=== PATIENT | male | born 1945 | race Caucasian/White ===

== ENCOUNTER 2019-10-15 17:44 | Inpatient (IN) | payer MEDICARE ==
[2019-10-15 17:50] VITALS: BMI 30.4
[2019-10-15] MEDS ORDERED: Acetaminophen 325 MG TAB PO PRN (19:34)
[2019-10-15] MEDS ORDERED: Benzonatate 100 MG CAP PO PRN (19:34)
[2019-10-15] MEDS: Losartan 25 MG TAB PO SCH (21:07)
[2019-10-15] MEDS: Ventolin HFA Inhaler 60 PUFF INHALER INH SCH (21:07)
[2019-10-15 21:33] LABS: #Basophils 0.1 thou/uL (0.0-0.2); #Eosinphils 0.2 thou/uL (0.0-0.7); #Lymphocytes 2.2 thou/uL (1.20-3.40); #Monocytes 0.6 thou/uL (0.11-0.59); #Neutrophils 5.7 thou/uL (1.40-6.50); %Lymphocytes 25.2 % (21.0-51.0); %Monocytes 6.8 % (0.0-10.0); %Neutrophils 65.1 % (42.0-75.0); Hemoglobin 12.9 g/dL (14.0-18.0); Mean Corpuscular HGB CONC 32.7 g/dL (32.0-36.0); Mean Corpuscular Hemoglobin 29.4 pg (27.0-31.0); Mean Corpuscular Volume 90.2 fL (78.0-98.0); Mean Platelet Volume 7.3 fL (7.4-10.4); Platelet Count 210 thou/uL (130-400); RBC Distribution Width 12.4 % (11.5-14.5); Red Blood Cell (RBC) Count 4.39 mill/uL (4.70-6.10); White Blood Cell (WBC) Count 8.7 thou/uL (4.8-10.8)
[2019-10-15 21:47] LABS: ALT (SGPT) 94 U/L (8-55); AST (SGOT) 46 U/L (5-34); Albumin 3.3 g/dL (3.4-4.8); Alkaline Phosphatase 119 U/L (40-110); Anion Gap 14 mmol/L (10-20); BUN (Urea Nitrogen) 14 mg/dL (8.4-25.7); Bilirubin, Total 0.7 mg/dL (0.2-1.2); Calc. Creatinine Clearance 56 mL/min (70-130); Calcium 8.6 mg/dL (7.8-10.44); Carbon Dioxide 23 mmol/L (23-31); Chloride 107 mmol/L (98-107); Estimated GFR-MDRD 39; Globulin 4.5 g/dL (2.4-3.5); Glucose 91 mg/dL (83-110); Potassium 3.2 mmol/L (3.5-5.1); Protein, Total 7.8 g/dL (5.8-8.1); Sodium 141 mmol/L (136-145)
--- NOTE | 2019-10-15 21:51 | RAD ---
Chest one view HISTORY: Pneumonia. FINDINGS: Cardiac silhouette is magnified and enlarged. Left hemidiaphragm is obscured by dense infil trate at the left posterior lung base. Pulmonary vasculature upper limits of normal. Patient is slightly rotated leftward. No evidence of pneumothorax. Prominent degenerative changes of the shoulders. IMPRESSION : Left lower lobe pneumonia. Cardiomegaly.
[2019-10-16] MEDS: Aspirin 81 mg Enteric Coated Tablet PO SCH (09:26)
[2019-10-16] MEDS: Amlodipine 5 MG TAB PO SCH (09:26)
[2019-10-16] MEDS: Atorvastatin Calcium 10 MG TAB PO SCH (09:27)
[2019-10-16] MEDS: Ventolin HFA Inhaler 60 PUFF INHALER INH SCH ×3 (09:27→19:54)
[2019-10-16] MEDS: Polyethylene Glycol 3350 17 GM Packet PO SCH (09:27)
--- NOTE | 2019-10-16 11:45 | HP ---
HISTORY OF PRESENT ILLNESS: The patient is an unfortunate 74-year-old white male living at the [facility] for several years because of gradually progressing dementia, but who had been maintaining ADLs when he developed acute respiratory distress and was found to have a left lower lobe pneumonia. He was evaluated for COVID-19 as this group home did have a significant outbreak, but he was negative x2. He was treated with broad-spectrum antibiotics with Rocephin and azithromycin and finished a full 10-day course. He was significantly distressed, but did not require intubations. He did have an elevated troponin, but Cardiology felt this was only stress demand and was only treated with antibiotics. DVT was ruled out. His chronic kidney disease stage 3 was monitored closely and did have some acute kidney injury, but then returned to baseline prior to discharge. He was kept in the hospital for 12 days in isolation, as mentioned above had 2 negative COVID, was slowly improving with no fever, chills, normal white count, and slowly improving renal function. However, he was not eating despite being fed, he refused and was unable to tolerate a modified barium swallow study and the family does not wish him to have a PEG tube. He was therefore transferred to [facility] for PT, OT, and speech with full aspiration risk. He is a full code at this time and will need further discussion if he does not continue to eat. At this time, all of history is obtained from the old chart. The patient is awake and alert and responsive, although lethargic. 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 MEDICATIONS: Prior to admission to [facility] was; 1. Coreg 25 twice daily. 2. Lasix p.r.n. 3. Nifedipine 60 daily. 4. MiraLAX. On transfer to [facility], his medication list included; 1. Amlodipine 5 mg daily. 2. Atorvastatin 10 daily. 3. Aspirin 81 daily. 4. Losartan 25 nightly. 5. Ventolin inhaler 2 puffs 3 times daily. 6. MiraLAX 17 g daily. PHYSICAL EXAMINATION: GENERAL: The patient is awake, responds to questions. Appears to have slurred speech, which may be chronic. He is oriented to person only. VITAL SIGNS: Show him to have blood pressure of 137/81, temperature 97, pulse 82, respirations 20, O2 sats 94% on room air. HEENT: Pupils are equal, round, and reactive to light and accommodation. Sclerae anicteric. Conjunctivae are pale. Oral mucous membranes appear to be dehydrated. NECK: Supple. No nodes or masses. JVP is not elevated. LUNGS: Show rhonchi and rales in the left base. CARDIAC: Shows regular rhythm. No gallops or murmurs. ABDOMEN: Soft and nontender. SKIN/EXTREMITIES: Showed no edema, clubbing, cyanosis. NEUROLOGIC: Shows diffuse weakness with right side more significantly weakened. LABORATORY DATA: On admission here showed a white count 8700, hematocrit 39, hemoglobin 12. Sodium 141, potassium 3.2, chloride 107, bicarb 23, BUN 14, creatinine 1.71, glucose 91, calcium 8.6, AST 46, ALT 94, alkaline phosphatase 119, albumin 3.3, globulin 4.5. Chest x-ray was repeated and did show left lower lobe pneumonia and infiltrate. ASSESSMENT: 1. Resolving left lower lobe pneumonia, healthcare associated, status post treatment with Zosyn and Zithromax with full course finished. He is also given hydroxychloroquine for several days. He is in no respiratory distress at this time, on no oxygen with no coughing. 2. Severe deconditioning and weakness, inability to maintain ADLs, transfer in the bed. 3. Poor oral intake with inability to swallow and refusal of modified barium and refusal of PEG tube by family. 4. Chronic kidney disease, stage 3 with exacerbation to stage 4 during the hospitalization, but now improved back to stable stage 3. 5. Hypokalemia, this admission, on no treatment. 6. Hypertension, controlled to goal. 7. Left ventricular hypertrophy with normal ejection fraction on echocardiogram. 8. History of obstructive sleep apnea. We will discuss CPAP with family. 9. History of hemorrhagic cerebrovascular accident with right hemiplegia, stable. 10. Full code status at this time with no PEG tube placement and we will discuss with the family. 11. Chronic dementia, stable. Job ID: [id number]
--- NOTE | 2019-10-16 13:29 | PRG ---
DATE OF SERVICE: 10/16/2019 SUBJECTIVE: The patient is sleeping, but awakens easily, talks with a slurred speech and answers questions somewhat appropriately, but is only oriented to person, did not eat well this morning. OBJECTIVE: LUNGS: Few diffuse rhonchi, worse on the left base. CARDIAC: Showed regular rhythm. ABDOMEN: Soft, nontender. VITAL SIGNS: Show temperature 97.5, pulse 81, respirations 20, O2 saturations 92% on room air, blood pressure 141/80. ASSESSMENT: 1. Resolving pneumonia. 2. Severe deconditioning. 3. Malnutrition with poor oral intake. 4. Old cerebrovascular accident with right hemiplegia. 5. Chronic kidney disease, stage 3 with improving acute kidney injury. PLAN: 1. Speech, occupational, and physical therapy. 2. Discuss caloric intake with family and refusal of PEG. 3. Discuss code status with family. 4. Continue supportive measures and respiratory therapy. Job ID: [id number]
[2019-10-16] MEDS: Losartan 25 MG TAB PO SCH (19:53)
[2019-10-17] MEDS: Amlodipine 5 MG TAB PO SCH (08:38)
[2019-10-17] MEDS: Atorvastatin Calcium 10 MG TAB PO SCH (08:39)
[2019-10-17] MEDS: Polyethylene Glycol 3350 17 GM Packet PO SCH (08:39)
[2019-10-17] MEDS: Aspirin 81 mg Enteric Coated Tablet PO SCH (09:02)
[2019-10-17] MEDS: Ventolin HFA Inhaler 60 PUFF INHALER INH SCH ×3 (09:53→20:54)
[2019-10-17] MEDS: Losartan 25 MG TAB PO SCH (20:54)
[2019-10-18] MEDS: Aspirin 81 mg Enteric Coated Tablet PO SCH (08:03)
[2019-10-18] MEDS: Atorvastatin Calcium 10 MG TAB PO SCH (08:03)
[2019-10-18] MEDS: Amlodipine 5 MG TAB PO SCH (08:03)
[2019-10-18] MEDS: Polyethylene Glycol 3350 17 GM Packet PO SCH (08:03)
[2019-10-18] MEDS: Ventolin HFA Inhaler 60 PUFF INHALER INH SCH (08:04)
[2019-10-18 08:05] VITALS: BP 153/95
[2019-10-18 09:09] VITALS: TEMP 97
== END 2019-10-18 13:25 | disposition short-term general hospital (02) | DRG 947 ==
LOC: NAV ACUTE 17:44
PROVIDERS: ADMIT Internal Medicine; ATTEND Internal Medicine
DX: R53.81 Other malaise (principal); J18.9 Pneumonia, unspecified organism; I69.351 Hemiplegia and hemiparesis following cerebral infarction affecting right dominant side; N17.9 Acute kidney failure, unspecified; E46 Unspecified protein-calorie malnutrition; R53.1 Weakness; R63.3 Feeding difficulties; R13.0 Aphagia; N18.3 Chronic kidney disease, stage 3 (moderate); I12.9 Hypertensive chronic kidney disease with stage 1 through stage 4 chronic kidney disease, or unspecified chronic kidney disease; E87.6 Hypokalemia; G47.33 Obstructive sleep apnea (adult) (pediatric); I51.7 Cardiomegaly; F03.90 Unspecified dementia, unspecified severity, without behavioral disturbance, psychotic disturbance, mood disturbance, and anxiety; F32.9 Major depressive disorder, single episode, unspecified; K21.9 Gastro-esophageal reflux disease without esophagitis; R47.81 Slurred speech; Z79.82 Long term (current) use of aspirin; Z68.30 Body mass index [BMI] 30.0-30.9, adult
CPT/HCPCS: 36415; 71045; 80053; 85025

== ENCOUNTER 2019-10-20 12:06 | Inpatient (IN) | payer MEDICARE ==
[2019-10-20] MEDS ORDERED: Benzonatate 100 MG CAP FS PRN (16:24)
[2019-10-20] MEDS: Ventolin HFA Inhaler 60 PUFF INHALER INH SCH (21:17)
[2019-10-20] MEDS: Losartan 25 MG TAB PER TUBE SCH (21:18)
[2019-10-21 05:16] LABS: #Basophils 0.1 thou/uL (0.0-0.2); #Eosinphils 0.3 thou/uL (0.0-0.7); #Lymphocytes 1.9 thou/uL (1.20-3.40); #Monocytes 0.8 thou/uL (0.11-0.59); #Neutrophils 4.3 thou/uL (1.40-6.50); %Eosinophils 3.7 % (0.0-10.0); %Lymphocytes 26.4 % (21.0-51.0); %Monocytes 11.1 % (0.0-10.0); %Neutrophils 57.8 % (42.0-75.0); Mean Corpuscular HGB CONC 32.4 g/dL (32.0-36.0); Mean Corpuscular Hemoglobin 29.8 pg (27.0-31.0); Mean Corpuscular Volume 91.8 fL (78.0-98.0); Mean Platelet Volume 7.6 fL (7.4-10.4); Platelet Count 182 thou/uL (130-400); RBC Distribution Width 13.5 % (11.5-14.5); Red Blood Cell (RBC) Count 4.36 mill/uL (4.70-6.10); White Blood Cell (WBC) Count 7.4 thou/uL (4.8-10.8)
[2019-10-21 05:30] LABS: Anion Gap 13 mmol/L (10-20); BUN (Urea Nitrogen) 18 mg/dL (8.4-25.7); Calc. Creatinine Clearance 54 mL/min (70-130); Calcium 9.4 mg/dL (7.8-10.44); Carbon Dioxide 23 mmol/L (23-31); Chloride 112 mmol/L (98-107); Estimated GFR-MDRD 39; Glucose 133 mg/dL (83-110); Potassium 3.4 mmol/L (3.5-5.1); Sodium 145 mmol/L (136-145)
[2019-10-21] MEDS: Amlodipine 5 MG TAB PER TUBE SCH (08:49)
[2019-10-21] MEDS: Atorvastatin Calcium 10 MG TAB PER TUBE SCH (08:49)
[2019-10-21] MEDS: Polyethylene Glycol 3350 17 GM Packet PER TUBE SCH (08:49)
[2019-10-21] MEDS: Ventolin HFA Inhaler 60 PUFF INHALER INH SCH ×3 (08:50→21:04)
[2019-10-21] MEDS: Losartan 25 MG TAB PER TUBE SCH (21:05)
--- NOTE | 2019-10-22 06:26 | PRG ---
DATE OF SERVICE: 10/21/2019 SUBJECTIVE: The patient is in the room, somewhat agitated with the therapist attempting working with him. He is having difficulty communicating and is refusing to get up and work. I have attempted to contact his daughter, and hopefully, she will contact the patient and therapist at this time he is not willing to cooperate. OBJECTIVE: VITAL SIGNS: Temperature 97.8, pulse 87, respirations 20, O2 sats 93% on room air, and blood pressure 136/81. NEUROLOGIC: Right-sided weakness and expressive aphasia. LUNGS: Clear with only few rhonchi in the left base. CARDIAC: Regular rhythm. ABDOMEN: Soft and nontender. LABORATORY DATA: White count 7400, hematocrit 40, and hemoglobin 13. Sodium 145, potassium 3.4, chloride 112, bicarb 23, BUN 18, creatinine 1.73 with a GFR of . ASSESSMENT AND PLAN: 1. Distant cerebrovascular accident with right hemiplegia and some expressive aphasia. 2. Recent aspiration pneumonia with severe weakness, appears to be improving, but still unsafe to swallow. 3. New PEG tube in place, tolerating well and monitor for aspiration. 4. Some agitation. Discussed with family I do not wish to give medications at present. Job ID: [id number]
--- NOTE | 2019-10-22 06:50 | HP ---
HISTORY OF PRESENT ILLNESS: The patient is a 74-year-old white male, just recently known to myself after transfer to the [facility] from [facility], where he was admitted from the [facility] because of respiratory distress and left lower lobe pneumonia. This facility had multiple patients with COVID-19 and he was evaluated with negative finding x2 and was treated for routine aspiration pneumonia felt to be related to his previous cerebrovascular accident with right hemiplegia. According to his daughter and family, however, he was eating well prior to his aspiration and was ambulating in a wheelchair despite his right hemiplegia at [place]. However, on presentation here, he was found to be unsafe to eat by Speech Therapy on two different evaluations, and after discussion with the daughter, he was transferred back to [facility] for a PEG tube. He has had a PEG tube placed now and is on initiation of tube feeding and is admitted back for further therapy. At this time, he is in no respiratory distress, he is awake and alert, but has problems with expressive aphasia and dysphagia, which is chronic and some agitation. He is not having any cough or shortness of breath or vomiting. PAST MEDICAL HISTORY: Remarkable as mentioned above for hemorrhagic CVA with right hemiplegia. Hypertension. Left ventricular hypertrophy. Gastroesophageal reflux. MEDICATIONS: At this time include: 1. Amlodipine 5 mg per tube daily. 2. Atorvastatin 10 mg daily. 3. Losartan 25 nightly. 4. Ventolin inhaler two puffs three times daily. REVIEW OF SYSTEMS: Essentially unobtainable secondary to the patient's agitation and aphasia. PHYSICAL EXAMINATION: VITAL SIGNS: Blood pressure 156/86, pulse 93, O2 sats 93% on room air, afebrile with temperature 98.2. HEENT: Pupils are equal, round, and reactive to light and accommodation. Sclerae anicteric. Conjunctivae pale. Oral mucous membranes appear to be slightly hydrated. He has poor dental hygiene. NECK: Supple. JVP is not elevated. Carotids 2+ and equal without bruits. LUNGS: Few rales and rhonchi on the left base. No wheezes. CARDIAC: Regular rhythm. ABDOMEN: Soft. Minimally tender around the PEG tube with good bowel sounds. No drainage. EXTREMITIES: Right-sided weakness. No edema or clubbing. NEUROLOGIC: Right hemiplegia. There is also expressive aphasia and some agitation, but cranial nerves appear to be intact. ASSESSMENT AND PLAN: A 74-year-old white male with history of previous cerebrovascular accident with expressive aphasia and right hemiplegia, who has suffered aspiration pneumonia and recovered, but is significantly weak now and he is unable to swallow at all safely and has had a PEG tube placed. He is readmitted back to the skilled unit for PT and OT. We continued on tube feeding of [place] at 60 to 65 mL an hour with head to be kept at 45 degrees and monitored for aspiration. He will be started also back on his blood pressure medicines and monitored closely for changes in his blood pressure and vital signs. Prognosis is somewhat guarded, but he is a full code at his family's request. Job ID: [id number]
[2019-10-22] MEDS: Polyethylene Glycol 3350 17 GM Packet PER TUBE SCH (08:40)
[2019-10-22] MEDS: Amlodipine 5 MG TAB PER TUBE SCH (08:40)
[2019-10-22] MEDS: Atorvastatin Calcium 10 MG TAB PER TUBE SCH (08:40)
[2019-10-22] MEDS: Ventolin HFA Inhaler 60 PUFF INHALER INH SCH ×3 (08:45→21:16)
[2019-10-22] MEDS: Acetaminophen 325 MG TAB PER TUBE PRN (21:17)
[2019-10-22] MEDS: Losartan 25 MG TAB PER TUBE SCH (21:17)
[2019-10-23] MEDS: Polyethylene Glycol 3350 17 GM Packet PER TUBE SCH (09:07)
[2019-10-23] MEDS: Atorvastatin Calcium 10 MG TAB PER TUBE SCH (09:07)
[2019-10-23] MEDS: Ventolin HFA Inhaler 60 PUFF INHALER INH SCH ×3 (09:08→20:54)
[2019-10-23] MEDS: Amlodipine 5 MG TAB PER TUBE SCH (09:08)
[2019-10-23] MEDS: Losartan 25 MG TAB PER TUBE SCH (20:55)
[2019-10-23] MEDS: Acetaminophen 325 MG TAB PER TUBE PRN (20:55)
[2019-10-24] MEDS: Amlodipine 5 MG TAB PER TUBE SCH (08:15)
[2019-10-24] MEDS: Ventolin HFA Inhaler 60 PUFF INHALER INH SCH ×3 (08:16→20:47)
[2019-10-24] MEDS: Atorvastatin Calcium 10 MG TAB PER TUBE SCH (08:16)
[2019-10-24] MEDS: Polyethylene Glycol 3350 17 GM Packet PER TUBE SCH (08:16)
--- NOTE | 2019-10-24 15:12 | PRG ---
DATE OF SERVICE: 10/24/2019 SUBJECTIVE: Mr. Iqbal is sleeping, but arousable. He is tolerating his tube feeds. Discussed with nursing. No concerns or questions. OBJECTIVE: VITAL SIGNS: He is afebrile. Heart rate 82, respirations 20, oxygen saturation 94% on room air, blood pressure 146/76. CARDIOVASCULAR: S1 and S2 plus. RESPIRATORY: Normal vesicular breath sounds. ABDOMEN: Soft. Nontender. Bowel sounds heard in all quadrants. EXTREMITIES: Without cyanosis or clubbing. CENTRAL NERVOUS SYSTEM: Residual deficits from his history of hemorrhagic CVA including right-sided weakness. IMPRESSION: 1. Resolving pneumonitis. 2. Hypertension. 3. Dyslipidemia. 4. Dysphagia, requiring PEG tube feeding. 5. Right-sided weakness, chronic. PLAN: 1. Continue current medications. 2. Nutritional support and aspiration precautions. 3. Monitor blood pressure. 4. DVT and stress ulcer prophylaxis. 5. Decubitus precautions. 6. Physical therapy. 7. Routine laboratory values. Job ID: [id number]
[2019-10-24] MEDS: Acetaminophen 325 MG TAB PER TUBE PRN (15:21)
[2019-10-24] MEDS: Losartan 25 MG TAB PER TUBE SCH (20:47)
[2019-10-25] MEDS: Amlodipine 5 MG TAB PER TUBE SCH (09:00)
[2019-10-25] MEDS: Atorvastatin Calcium 10 MG TAB PER TUBE SCH (09:00)
[2019-10-25] MEDS: Polyethylene Glycol 3350 17 GM Packet PER TUBE SCH (09:00)
[2019-10-25] MEDS: Ventolin HFA Inhaler 60 PUFF INHALER INH SCH ×3 (09:00→20:57)
--- NOTE | 2019-10-25 10:54 | PRG ---
DATE OF SERVICE: 10/25/2019 SUBJECTIVE: Mr. Iqbal is resting in bed and denies any complaints. He states that he slept well. He basically accessed by shaking his head yes or no. No family at bedside. OBJECTIVE: VITAL SIGNS: He is afebrile, heart rate 84, respirations 20, oxygen saturation 93% on room air, blood pressure 145/75. CARDIOVASCULAR SYSTEM: S1 and S2 plus. RESPIRATORY SYSTEM: Normal vesicular breath sounds. ABDOMEN: Soft and nontender. Bowel sounds heard in all quadrants. PEG tube site is healthy. EXTREMITIES: Without cyanosis or clubbing. Peripheral pulses are palpable. CENTRAL NERVOUS SYSTEM: Awake and responsive. Right-sided weakness. IMPRESSION: 1. Resolving pneumonitis. 2. Hypertension. 3. Dyslipidemia. 4. Dysphagia, requiring PEG tube feeding. 5. Right-sided weakness. PLAN: 1. Continue current medications. 2. Nutritional support with tube feeding and aspiration precautions. 3. Monitor blood pressure and adjust medications as needed. 4. Decubitus precautions. 5. Continue physical therapy. 6. Monitor respiratory status. 7. Dr. Roberts back [facility]. Job ID: [id number]
[2019-10-25] MEDS: Losartan 25 MG TAB PER TUBE SCH (20:57)
[2019-10-26] MEDS: Ventolin HFA Inhaler 60 PUFF INHALER INH SCH ×3 (08:28→21:27)
[2019-10-26] MEDS: Atorvastatin Calcium 10 MG TAB PER TUBE SCH (08:28)
[2019-10-26] MEDS: Amlodipine 5 MG TAB PER TUBE SCH (08:28)
[2019-10-26] MEDS: Polyethylene Glycol 3350 17 GM Packet PER TUBE SCH (08:29)
[2019-10-26] MEDS ORDERED: Polyethylene Glycol 3350 17 GM Packet PER TUBE PRN (17:17)
--- NOTE | 2019-10-26 18:28 | PRG ---
DATE OF SERVICE: 10/23/2019 SUBJECTIVE: The patient is more awake, cooperating with therapy with less agitation. Tolerating tube feedings well. OBJECTIVE: VITAL SIGNS: Shows temperature is 98, pulse 87, respiration 19, O2 saturations 92% on room air, blood pressure 144/79. LUNGS: Clear. CARDIAC: Showed regular rhythm. ABDOMEN: Soft and nontender. SKIN/EXTREMITIES: Display no edema, clubbing, or cyanosis. ASSESSMENT: 1. Resolving deconditioning, working with therapy. 2. Persistent dysphagia and expressive aphasia, status post PEG tube placement. Tolerating well. 3. Old cerebrovascular accident. 4. Superimposed metabolic encephalopathy. 5. Hypertension. PLAN: 1. Continue PT, OT. 2. Continue PEG tube feedings. 3. Continue losartan, amlodipine for blood pressure control. Job ID: [id number]
--- NOTE | 2019-10-26 18:29 | PRG ---
DATE OF SERVICE: SUBJECTIVE: Patient is awake and alert, somewhat confused. Still having some problem with swallowing and talking, but is cooperating with therapy. He is having increased diarrhea now that on routine MiraLAX. OBJECTIVE: VITAL SIGNS: Show temperature is 97.6, blood pressure 131/79, O2 sats 92%, and pulse 95. LUNGS: Clear. CARDIAC: Regular rhythm. ABDOMEN: Soft and nontender. ASSESSMENT: 1. Resolving deconditioning, status post aspiration pneumonia. 2. Persistent dysphagia, but working with Physical Therapy, now on PEG tube feeding. 3. Old cerebrovascular accident with superimposed weakness. 4. Confusion, improving. Job ID: [id number]
[2019-10-26] MEDS: Losartan 25 MG TAB PER TUBE SCH (21:27)
[2019-10-27] MEDS: Amlodipine 5 MG TAB PER TUBE SCH (09:07)
[2019-10-27] MEDS: Atorvastatin Calcium 10 MG TAB PER TUBE SCH (09:07)
[2019-10-27] MEDS: Ventolin HFA Inhaler 60 PUFF INHALER INH SCH ×3 (09:20→20:57)
[2019-10-27] MEDS: Losartan 25 MG TAB PER TUBE SCH (20:57)
[2019-10-28] MEDS: Amlodipine 5 MG TAB PER TUBE SCH (09:40)
[2019-10-28] MEDS: Atorvastatin Calcium 10 MG TAB PER TUBE SCH (09:40)
[2019-10-28] MEDS: Ventolin HFA Inhaler 60 PUFF INHALER INH SCH ×3 (09:40→20:39)
[2019-10-28] MEDS: Losartan 25 MG TAB PER TUBE SCH (20:38)
[2019-10-29] MEDS: Atorvastatin Calcium 10 MG TAB PER TUBE SCH (09:26)
[2019-10-29] MEDS: Amlodipine 5 MG TAB PER TUBE SCH (09:26)
[2019-10-29] MEDS: Ventolin HFA Inhaler 60 PUFF INHALER INH SCH ×3 (09:27→21:08)
--- NOTE | 2019-10-29 19:08 | PRG ---
DATE OF SERVICE: 10/26/2019 SUBJECTIVE: The patient is lying in bed, awake and alert, not very cooperative to therapy and no distress, tolerating tube feedings well. OBJECTIVE: VITAL SIGNS: Blood pressure is 131/79, O2 saturation 92%, pulse is 90. LUNGS: Clear. CARDIAC: Examination showed regular rhythm. ABDOMEN: Soft, nontender. PEG tube is functioning well. ASSESSMENT: 1. Resolved pneumonia. 2. Significant deconditioning. 3. Severe dysphagia, requiring percutaneous endoscopic gastrostomy tube placement. 4. Old cerebrovascular accident with some cognitive deficits and dysarthria appears to be stable. PLAN: 1. Continue PT/OT. 2. Continue tube feedings. 3. Monitor for aspiration. Job ID: [id number]
--- NOTE | 2019-10-29 19:09 | PRG ---
DATE OF SERVICE: 10/29/2019 SUBJECTIVE: The patient is awake, response, but inappropriate times with some dysphagia, but appears to be attempting to respond appropriately. Denies chest pain or shortness of breath. OBJECTIVE: VITAL SIGNS: Shows blood pressure 144/93, pulse 79, and O2 saturations 93% on room air. LUNGS: Clear. CARDIAC: Showed regular rhythm. ABDOMEN: Soft and nontender with healed PEG tube. ASSESSMENT: 1. Aspiration, persistent with percutaneous endoscopic gastrostomy tube feeding being tolerated. 2. Deconditioning, improving mentally. 3. Cognitive deficits from cerebrovascular accident, improved only slightly or minimally and we will discuss with daughter as limiting therapy. PLAN: Repeat CBC and comprehensive metabolic panel in the morning and discussed situation with daughter. Continue PT/OT. Job ID: [id number]
--- NOTE | 2019-10-29 19:11 | PRG ---
DATE OF SERVICE: 10/28/2019 SUBJECTIVE: Patient feels well but is not cooperating with Therapy and Therapy states pretty much stable with minimal improvement. He is tolerating tube feeding and appears to be stronger. OBJECTIVE: VITAL SIGNS: Show blood pressure is 141/76, O2 sats 93% on room air, pulse 79, and afebrile. LUNGS: Clear. CARDIAC: Shows regular rhythm. ABDOMEN: Soft. Healed PEG tube. ASSESSMENT: 1. Stable dysphagia with PEG tube feeding. No aspiration. 2. Deconditioning with minimal improvement secondary to cognitive deficits limiting therapy. 3. Significant cognitive deficits and expressive aphasia possibly from an old cerebrovascular accident and we will discuss with daughter. Job ID: [id number]
--- NOTE | 2019-10-29 19:11 | PRG ---
DATE OF SERVICE: 10/27/2019 SUBJECTIVE: The patient is up, working with therapy, but is confused and somewhat agitated at times, limiting his progress. OBJECTIVE: VITAL SIGNS: Shows temperature is 96.4, pulse 78, respirations 18, O2 saturations 93% on room air, and blood pressure 126/66. LUNGS: Clear. CARDIAC: Showed regular rhythm. ABDOMEN: Soft and nontender with PEG tube healed well. ASSESSMENT: 1. Old cerebrovascular accident with some cognitive deficits, which appear to be not improving. We will discuss with family. 2. Expressive aphasia, stable. 3. Dysphagia, stable with percutaneous endoscopic gastrostomy tube and Speech following with still unsafe to eat. 4. Resolved pneumonia. PLAN: 1. Continue PT, OT, and speech. 2. Continue tube feeding. 3. Continue to monitor for aspiration. Job ID: [id number]
[2019-10-29] MEDS: Losartan 25 MG TAB PER TUBE SCH (21:08)
[2019-10-30 05:41] LABS: #Basophils 0.1 thou/uL (0.0-0.2); #Eosinphils 0.3 thou/uL (0.0-0.7); #Lymphocytes 1.6 thou/uL (1.20-3.40); #Monocytes 0.5 thou/uL (0.11-0.59); #Neutrophils 4.6 thou/uL (1.40-6.50); %Basophils 0.9 % (0.0-1.0); %Eosinophils 4.9 % (0.0-10.0); %Lymphocytes 22.1 % (21.0-51.0); %Monocytes 7.3 % (0.0-10.0); %Neutrophils 64.7 % (42.0-75.0); Hemoglobin 12.5 g/dL (14.0-18.0); Mean Corpuscular HGB CONC 32.8 g/dL (32.0-36.0); Mean Corpuscular Hemoglobin 30.1 pg (27.0-31.0); Mean Corpuscular Volume 91.8 fL (78.0-98.0); Mean Platelet Volume 8.4 fL (7.4-10.4); Platelet Count 150 thou/uL (130-400); RBC Distribution Width 13.4 % (11.5-14.5); Red Blood Cell (RBC) Count 4.15 mill/uL (4.70-6.10)
[2019-10-30 05:54] LABS: ALT (SGPT) 45 U/L (8-55); AST (SGOT) 36 U/L (5-34); Albumin 3.3 g/dL (3.4-4.8); Alkaline Phosphatase 136 U/L (40-110); Anion Gap 13 mmol/L (10-20); BUN (Urea Nitrogen) 15 mg/dL (8.4-25.7); Bilirubin, Total 0.4 mg/dL (0.2-1.2); Calc. Creatinine Clearance 62 mL/min (70-130); Calcium 9.7 mg/dL (7.8-10.44); Carbon Dioxide 27 mmol/L (23-31); Chloride 102 mmol/L (98-107); Estimated GFR-MDRD 45; Glucose 119 mg/dL (83-110); Potassium 3.8 mmol/L (3.5-5.1); Protein, Total 7.3 g/dL (5.8-8.1); Sodium 138 mmol/L (136-145)
[2019-10-30] MEDS: Amlodipine 5 MG TAB PER TUBE SCH (09:21)
[2019-10-30] MEDS: Atorvastatin Calcium 10 MG TAB PER TUBE SCH (09:21)
[2019-10-30] MEDS: Ventolin HFA Inhaler 60 PUFF INHALER INH SCH ×3 (09:25→21:49)
[2019-10-30] MEDS: Losartan 25 MG TAB PER TUBE SCH (21:50)
[2019-10-31] MEDS: Amlodipine 5 MG TAB PER TUBE SCH (08:26)
[2019-10-31] MEDS: Ventolin HFA Inhaler 60 PUFF INHALER INH SCH ×3 (08:28→20:24)
[2019-10-31] MEDS: Atorvastatin Calcium 10 MG TAB PER TUBE SCH (08:28)
[2019-10-31] MEDS: Losartan 25 MG TAB PER TUBE SCH (20:25)
[2019-11-01] MEDS: Ventolin HFA Inhaler 60 PUFF INHALER INH SCH ×3 (08:21→20:36)
[2019-11-01] MEDS: Amlodipine 5 MG TAB PER TUBE SCH (08:22)
[2019-11-01] MEDS: Atorvastatin Calcium 10 MG TAB PER TUBE SCH (08:22)
[2019-11-01] MEDS: Losartan 25 MG TAB PER TUBE SCH (20:37)
[2019-11-02] MEDS: Amlodipine 5 MG TAB PER TUBE SCH (09:04)
[2019-11-02] MEDS: Atorvastatin Calcium 10 MG TAB PER TUBE SCH (09:04)
[2019-11-02] MEDS: Ventolin HFA Inhaler 60 PUFF INHALER INH SCH ×3 (09:05→20:24)
--- NOTE | 2019-11-02 18:40 | PRG ---
DATE OF SERVICE: 10/30/2019 SUBJECTIVE: The patient is lying in bed, lethargic, responds to questions, but very slowly, has been cooperating minimally with therapy, and we will discuss with therapy tomorrow. OBJECTIVE: VITAL SIGNS: Shows blood pressure 155/84, temperature is 98, pulse 92, respirations 20, O2 sat is 94% on room air. LUNGS: Clear. CARDIAC: Shows regular rhythm. ABDOMEN: Soft, nontender. SKIN/EXTREMITIES: No edema, clubbing, or cyanosis. Diffuse weakness, worse on the right side. LABORATORY DATA: Shows a white count of 7000, hematocrit 38 hemoglobin 12. Sodium 138, potassium 3.8, chloride 102, bicarb 27, BUN 15, creatinine 1.5, glucose 119, calcium 9.7. Total bilirubin 0.4, AST 36, ALT 45, alkaline phosphatase 136, albumin 3.3, globulin 4.4. ASSESSMENT: 1. Aspiration pneumonia, resolving with no evidence of respiratory distress. 2. Deconditioning minimally improving with some difficulty with cognition limiting work. 3. Old cerebrovascular accident with possibly previous injuries, and we will discuss with daughter. Job ID: [id number]
--- NOTE | 2019-11-02 18:51 | PRG ---
DATE OF SERVICE: 10/31/2019 SUBJECTIVE: The patient is cooperating minimally with therapy and discussed with therapy. He states that pretty much he is not making any progress secondary to his cognitive deficits. He has no respiratory distress and is tolerating tube feedings well. OBJECTIVE: VITAL SIGNS: Show a blood pressure of 133/63, temperature is 98, pulse 89, respirations 18, and O2 sats 93% on room air. LUNGS: Clear. CARDIAC: Showed regular rhythm. ABDOMEN: Soft and nontender. ASSESSMENT: 1. Resolving aspiration pneumonia. 2. Stable dysphagia on PEG tube feeding, tolerating well. 3. Cognitive deficits limiting improvement in deconditioning. 4. Deconditioning with minimal improvement. PLAN: Have conversation, conference call with daughter tomorrow with the patient in the room. Job ID: [id number]
--- NOTE | 2019-11-02 19:00 | PRG ---
DATE OF SERVICE: 11/01/2019 SUBJECTIVE: The patient is sleeping, but awakens easily when discussed situation with his daughter who is on the phone with him and myself at this time. He states that he will improve and does appear to be more alert. After discussion, the daughter states she is available for therapy to call the patient. Call her while, the patient is being evaluated and we will attempt to do this tomorrow. OBJECTIVE: VITAL SIGNS: Temperature 98, pulse 89, respirations 18, O2 saturations 92% on room air, and blood pressure 141/75. ASSESSMENT: 1. Cognitive deficits, which the daughter states is new since the aspiration pneumonia, metabolic encephalopathy. 2. Resolving aspiration pneumonia. 3. Persistent dysphagia, slowly improving. PEG tube in place and we will continue an attempt physical therapy more aggressively. Job ID: [id number]
[2019-11-02] MEDS: Losartan 25 MG TAB PER TUBE SCH (20:24)
--- NOTE | 2019-11-03 08:29 | PRG ---
DATE OF SERVICE: 11/02/2019 SUBJECTIVE: The patient did not cooperate well with therapy, but his therapist did not call his daughter as she has called me and informed me. He is lying in bed, but responds appropriately and states that he did not talk to his daughter today. OBJECTIVE: VITAL SIGNS: Shows blood pressure is 163/84, temperature is 99, pulse 89, respirations 20, O2 saturations 92% on room air. LUNGS: Clear. CARDIAC: Shows regular rhythm. ABDOMEN: Soft and nontender. SKIN/EXTREMITIES: Display no edema, clubbing, or cyanosis. PEG tube is functioning well. ASSESSMENT: 1. Resolving aspiration pneumonia with improving metabolic encephalopathy is still persistent. 2. Old cerebrovascular accident with diffuse weakness, right side worse than left. 3. Dysphagia requiring PEG tube, being followed by Speech and we will discuss tomorrow. 4. Deconditioning, improving slightly. PLAN: 1. Discussed with Therapy about call with daughter daily. 2. Continue PT/OT. 3. Continue tube feeding and discuss with Speech. Job ID: [id number]
[2019-11-03] MEDS: Ventolin HFA Inhaler 60 PUFF INHALER INH SCH ×3 (09:54→20:37)
[2019-11-03] MEDS: Atorvastatin Calcium 10 MG TAB PER TUBE SCH (09:55)
[2019-11-03] MEDS: Amlodipine 5 MG TAB PER TUBE SCH (09:55)
[2019-11-03] MEDS: Losartan 25 MG TAB PER TUBE SCH (20:37)
[2019-11-04] MEDS: Atorvastatin Calcium 10 MG TAB PER TUBE SCH (08:53)
[2019-11-04] MEDS: Ventolin HFA Inhaler 60 PUFF INHALER INH SCH ×3 (08:53→20:20)
[2019-11-04] MEDS: Amlodipine 5 MG TAB PER TUBE SCH (08:53)
[2019-11-04] MEDS: Losartan 25 MG TAB PER TUBE SCH (20:19)
--- NOTE | 2019-11-05 07:52 | PRG ---
DATE OF SERVICE: 11/03/2019 SUBJECTIVE: The patient has been cooperating somewhat with therapy as his daughter has been discussing his care with him with therapy. He is cooperating more, but is still not improving. OBJECTIVE: VITAL SIGNS: Show temperature is 97.7, pulse 87, respirations 20, O2 saturations 96% on room air, and blood pressure is 129/63. LUNGS: Clear. CARDIAC: Showed regular rhythm. ABDOMEN: Soft, nontender. PEG tube is functioning well. NEUROLOGIC: The patient is responsive and alert, but somewhat noncompliant to instructions. ASSESSMENT: 1. Metabolic encephalopathy superimposed on previous probable chronic dementia, minimally improving. 2. Dysphagia with PEG tube feeding, being followed by Speech and will be seen tomorrow. 3. Resolved aspiration pneumonia. 4. Old CVA with diffuse weakness, worse on the right side. 5. Deconditioning, improving slightly. PLAN: 1. Continue PT and OT. 2. Discuss with Speech tomorrow. 3. Continue tube feeding. 4. Discuss with family later in the week about discharge planning. Job ID: [id number]
[2019-11-05] MEDS: Ventolin HFA Inhaler 60 PUFF INHALER INH SCH ×3 (08:00→20:54)
[2019-11-05] MEDS: Amlodipine 5 MG TAB PER TUBE SCH (08:00)
[2019-11-05] MEDS: Atorvastatin Calcium 10 MG TAB PER TUBE SCH (08:00)
--- NOTE | 2019-11-05 08:05 | PRG ---
DATE OF SERVICE: 11/04/2019 SUBJECTIVE: The patient has been seen by Speech Therapy and has been still deemed to be unsafe for any solid or liquid food consistency, does continue to hold contents in his mouth and he has aspiration risk and is only cooperating minimally with exercises. Physical Therapy also states that the patient does appear to be getting slightly stronger, but he is still not cooperating well with therapy because of cognitive deficit. OBJECTIVE: VITAL SIGNS: Show temperature 98, pulse 81, respirations 20, O2 saturations 96% on room air, and blood pressure 144/76. LUNGS: Clear. CARDIAC: Showed regular rhythm. ABDOMEN: Soft and nontender. PEG tube has healed well. ASSESSMENT: 1. Persistent metabolic encephalopathy superimposed on chronic dementia, limiting therapy. 2. Deconditioning, improving slowly. 3. Persistent dysphagia with high aspiration risk requiring PEG tube feeding. 4. Resolving aspiration pneumonia. 5. Deconditioning, improving minimally. PLAN: 1. Continue PT and OT. 2. Discuss discharge planning with daughter. 3. Discuss with Speech Therapy about any change in rehabilitative potential. Job ID: [id number]
[2019-11-05] MEDS: Losartan 25 MG TAB PER TUBE SCH (20:55)
[2019-11-06] MEDS: Amlodipine 5 MG TAB PER TUBE SCH (08:54)
[2019-11-06] MEDS: Ventolin HFA Inhaler 60 PUFF INHALER INH SCH ×3 (08:54→20:29)
[2019-11-06] MEDS: Atorvastatin Calcium 10 MG TAB PER TUBE SCH (08:54)
--- NOTE | 2019-11-06 18:33 | PRG ---
DATE OF SERVICE: 11/05/2019 SUBJECTIVE: The patient is up in the chair, working with therapy, but therapy states he is pretty much plateaued. He is not getting any stronger or cooperating any more. Speech Therapy states also he is still unsafe to swallow and requires PEG tube feeding. OBJECTIVE: VITAL SIGNS: Shows blood pressure is 130/62, temperature is 99, pulse 87, respirations 20, O2 saturations 91% on room air. LUNGS: Clear. CARDIAC: Showed regular rhythm. ABDOMEN: Soft and nontender. ASSESSMENT: 1. Resolving aspiration pneumonia with COVID x2 negative. 2. He did not have COVID pneumonia aspiration pneumonia. 3. 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 4. Dysphagia, not progressing and still unsafe to eat, tolerating PEG tube feedings. PLAN: Discuss [facility] placement with daughter the patient is stabilized. Continue PEG tube feedings and discuss speech therapy with Speech. Job ID: [id number]
--- NOTE | 2019-11-06 18:41 | PRG ---
DATE OF SERVICE: 11/06/2019 SUBJECTIVE: The patient is awake and alert, responds appropriately to questions. Discussed the situation with his daughter today, who understands that he may not be meeting Medicare qualifications and will, therefore, start looking for skilled nursing placement. OBJECTIVE: VITAL SIGNS: Temperature is 96.7, pulse 84, respirations 20, O2 saturations 95% on room air, and blood pressure 143/68. LUNGS: Clear. CARDIAC: Showed regular rhythm. ABDOMEN: Soft and nontender. SKIN/EXTREMITIES: Display no edema, clubbing, or cyanosis. NEUROLOGIC: Shows right-sided weakness, some problems with expressive aphasia and confusion. ASSESSMENT: 1. Resolved aspiration pneumonia. 2. Persistent dysphagia and aspiration risk on PEG tube feeding. 3. Persistent right-sided weakness and inability to maintain ADLs. PLAN: Discussed further treatment with speech therapy. Confirm with physical therapy the patient has reached maximum hospital benefit. Have [facility] research skilled nursing facilities for unskilled and skilled in [place], [place]. Job ID: [id number]
[2019-11-06] MEDS: Losartan 25 MG TAB PER TUBE SCH (20:30)
--- NOTE | 2019-11-07 07:11 | PRG ---
DATE OF SERVICE: 11/07/2019 SUBJECTIVE: Mr. Iqbal is resting in bed. He is tolerating his PEG feeding. He denies any questions. Discussed with nursing. No family at bedside. OBJECTIVE: VITAL SIGNS: He is afebrile, heart rate 88, respirations 20, oxygen saturation 93% on room air, blood pressure 126/62. CARDIOVASCULAR SYSTEM: S1 and S2 plus. RESPIRATORY SYSTEM: Normal vesicular breath sounds. ABDOMEN: Soft, nontender. Bowel sounds heard in all quadrants. PEG tube site is healthy. EXTREMITIES: Without cyanosis or clubbing. CENTRAL NERVOUS SYSTEM: Improving right-sided weakness. IMPRESSION: 1. Hypertension. 2. Dyslipidemia. 3. Dysphagia, requiring PEG tube feeding. 4. Improving right-sided weakness. 5. Resolved pneumonitis. 6. Deconditioning. PLAN: 1. Continue current medications. 2. Continue tube feedings with aspiration precautions. 3. Monitor blood pressure. 4. Physical therapy. 5. DVT and stress ulcer prophylaxis. 6. Decubitus precautions. 7. Routine laboratory values. Job ID: [id number]
[2019-11-07] MEDS: Amlodipine 5 MG TAB PER TUBE SCH (09:11)
[2019-11-07] MEDS: Atorvastatin Calcium 10 MG TAB PER TUBE SCH (09:12)
[2019-11-07] MEDS: Ventolin HFA Inhaler 60 PUFF INHALER INH SCH ×3 (09:12→21:16)
[2019-11-07] MEDS: Losartan 25 MG TAB PER TUBE SCH (21:15)
[2019-11-08] MEDS: Amlodipine 5 MG TAB PER TUBE SCH (09:14)
[2019-11-08] MEDS: Atorvastatin Calcium 10 MG TAB PER TUBE SCH (09:15)
[2019-11-08] MEDS: Ventolin HFA Inhaler 60 PUFF INHALER INH SCH ×3 (09:16→20:50)
--- NOTE | 2019-11-08 13:59 | PRG ---
DATE OF SERVICE: 11/08/2019 SUBJECTIVE: Mr. Iqbal is doing well, tolerating his feedings. Denies any concerns. Discussed with nursing. OBJECTIVE: VITAL SIGNS: He is afebrile. Heart rate 80, respirations 18, oxygen saturation 94% on room air, blood pressure 131/68. CARDIOVASCULAR: S1 and S2 plus. RESPIRATORY: Normal vesicular breath sounds. ABDOMEN: Soft and nontender. Bowel sounds heard in all quadrants. PEG tube site is healthy. EXTREMITIES: Without cyanosis or clubbing. CENTRAL NERVOUS SYSTEM: Improving right-sided weakness, but very slow. IMPRESSION: 1. Hypertension. 2. Dyslipidemia. 3. Dysphagia, requiring PEG tube placement. 4. Deconditioning and improving right-sided weakness. PLAN: 1. Continue current medications. 2. Nutritional support with tube feeding. 3. Monitor blood pressure and adjust medications as needed. 4. Continue physical therapy. 5. DVT and stress ulcer prophylaxis. 6. Routine laboratory values. 7. Dr. Armando awan [facility]. Job ID: [id number]
[2019-11-08] MEDS: Acetaminophen 325 MG TAB PER TUBE PRN (20:50)
[2019-11-08] MEDS: Losartan 25 MG TAB PER TUBE SCH (20:50)
[2019-11-09] MEDS: Amlodipine 5 MG TAB PER TUBE SCH (09:46)
[2019-11-09] MEDS: Acetaminophen 325 MG TAB PER TUBE PRN (09:46)
[2019-11-09] MEDS: Atorvastatin Calcium 10 MG TAB PER TUBE SCH (09:46)
[2019-11-09] MEDS: Ventolin HFA Inhaler 60 PUFF INHALER INH SCH ×3 (09:53→21:32)
[2019-11-09] MEDS: Losartan 25 MG TAB PER TUBE SCH (21:32)
--- NOTE | 2019-11-10 06:20 | PRG ---
DATE OF SERVICE: 11/09/2019 SUBJECTIVE: The patient lying in bed, awake and responds appropriately, but still very weak and cooperating minimally with physical therapy. I have not discussed with Speech Therapy, but feel that he has improved only minimally with that and still is on PEG tube feeding. Discussed his care with his daughter this weekend, who understands his lack of progression, is preparing for transfer him to a nursing facility closer to her home in [place]. OBJECTIVE: VITAL SIGNS: Show temperature 97.6, pulse 76, respirations 20, O2 sats 94% on room air, and blood pressure 135/72. LUNGS: Clear. CARDIAC: Shows regular rhythm. ABDOMEN: Soft and nontender. PEG tube functioning well. SKIN/EXTREMITIES: Displayed no edema, clubbing, or cyanosis. NEUROLOGIC: He is showing right-sided weakness, some still slurred speech. ASSESSMENT: 1. Chronic right hemiplegia secondary to old cerebrovascular accident. 2. Resolved aspiration pneumonia. 3. Persistent encephalopathy, possibly acute superimposed on chronic. 4. Persistent dysphagia, requiring PEG tube feeding. PLAN: 1. Discuss with Speech Therapy. 2. Repeat CBC and comprehensive metabolic panel. 3. Discuss discharge planning with daughter. 4. Continue PT/OT. Job ID: [id number]
[2019-11-10 07:08] LABS: #Eosinphils 0.5 thou/uL (0.0-0.7); #Lymphocytes 1.9 thou/uL (1.20-3.40); #Monocytes 0.6 thou/uL (0.11-0.59); #Neutrophils 6.1 thou/uL (1.40-6.50); %Basophils 0.5 % (0.0-1.0); %Eosinophils 5.6 % (0.0-10.0); %Lymphocytes 20.8 % (21.0-51.0); %Monocytes 6.5 % (0.0-10.0); %Neutrophils 66.6 % (42.0-75.0); Mean Corpuscular HGB CONC 32.9 g/dL (32.0-36.0); Mean Corpuscular Hemoglobin 29.6 pg (27.0-31.0); Mean Platelet Volume 6.6 fL (7.4-10.4); Platelet Count 217 thou/uL (130-400); RBC Distribution Width 12.4 % (11.5-14.5); Red Blood Cell (RBC) Count 4.04 mill/uL (4.70-6.10); White Blood Cell (WBC) Count 9.1 thou/uL (4.8-10.8)
[2019-11-10 07:29] LABS: ALT (SGPT) 49 U/L (8-55); AST (SGOT) 33 U/L (5-34); Albumin 3.2 g/dL (3.4-4.8); Alkaline Phosphatase 131 U/L (40-110); Anion Gap 13 mmol/L (10-20); BUN (Urea Nitrogen) 20 mg/dL (8.4-25.7); Bilirubin, Total 0.3 mg/dL (0.2-1.2); Calc. Creatinine Clearance 63 mL/min (70-130); Calcium 9.8 mg/dL (7.8-10.44); Carbon Dioxide 29 mmol/L (23-31); Chloride 99 mmol/L (98-107); Estimated GFR-MDRD 43; Globulin 4.4 g/dL (2.4-3.5); Glucose 109 mg/dL (83-110); Potassium 4.3 mmol/L (3.5-5.1); Protein, Total 7.6 g/dL (5.8-8.1); Sodium 137 mmol/L (136-145)
[2019-11-10] MEDS: Atorvastatin Calcium 10 MG TAB PER TUBE SCH (09:42)
[2019-11-10] MEDS: Amlodipine 5 MG TAB PER TUBE SCH (09:42)
[2019-11-10] MEDS: Ventolin HFA Inhaler 60 PUFF INHALER INH SCH ×3 (09:42→20:52)
[2019-11-10] MEDS: Losartan 25 MG TAB PER TUBE SCH (20:53)
--- NOTE | 2019-11-11 06:30 | PRG ---
DATE OF SERVICE: 11/10/2019 SUBJECTIVE: The patient is lying in bed, resting, awakens fairly easy, responds somewhat appropriately with monosyllable answers, is cooperating minimally to moderately with PT. OBJECTIVE: VITAL SIGNS: Shows temperature 98, pulse 89, respirations 20, O2 sats 94% on room air, and blood pressure is 120/57. LUNGS: Clear. CARDIAC: Shows regular rhythm. ABDOMEN: Soft and nontender. Well-healed PEG tube. Speech evaluation revealed persistent severe dysphagia and I attempted to contact daughter to advise her required skilled home health, speech therapy services, or long-term facility. ASSESSMENT: 1. Persistent dysphagia with PEG tube, tolerating well, but inability to tolerate safely any oral food. 2. Cerebrovascular accident with right hemiplegia, stable, inability to maintain activities of daily living, minimal improvement over the last several days. 3. Aspiration pneumonia, resolved. 4. Persistent encephalopathy, superimposed on chronic dementia, appears to be stable. PLAN: Discuss discharge planning with daughter as the patient appears to be plateaued with both speech and physical therapy and we will stress need to make discharge plans. Job ID: [id number]
[2019-11-11] MEDS: Atorvastatin Calcium 10 MG TAB PER TUBE SCH (09:09)
[2019-11-11] MEDS: Amlodipine 5 MG TAB PER TUBE SCH (09:10)
[2019-11-11] MEDS: Ventolin HFA Inhaler 60 PUFF INHALER INH SCH ×3 (09:10→20:42)
[2019-11-11] MEDS: Losartan 25 MG TAB PER TUBE SCH (20:43)
[2019-11-12] MEDS: Atorvastatin Calcium 10 MG TAB PER TUBE SCH (09:02)
[2019-11-12] MEDS: Amlodipine 5 MG TAB PER TUBE SCH (09:02)
[2019-11-12] MEDS: Ventolin HFA Inhaler 60 PUFF INHALER INH SCH ×3 (09:04→20:52)
[2019-11-12] MEDS: Losartan 25 MG TAB PER TUBE SCH (20:50)
--- NOTE | 2019-11-13 06:25 | PRG ---
DATE OF SERVICE: 11/11/2019 SUBJECTIVE: The patient is lying in bed, resting. No complaints. Has been cooperating minimally with therapy. Has been tolerating PEG feeding well. LABORATORY DATA: White count is 9100, hematocrit 36, and hemoglobin 12. Sodium is 137, potassium 4.3, chloride 99, bicarb 29, BUN 20, creatinine 1.58, and albumin 3.2. OBJECTIVE: LUNGS: Clear. CARDIAC: Shows regular rhythm. ABDOMEN: Soft and nontender. Shows healed PEG tube. VITAL SIGNS: Pulse 82, blood pressure 135/64, O2 sats 94% on room air, and temperature 97.3. NEUROLOGIC: Shows the patient is awake, responsive, but still somewhat confused with mild right hemiparesis. ASSESSMENT: 1. Resolved pneumonia. 2. Persistent dysphagia, tolerating PEG tube, but unable to tolerate oral liquids. 3. Stable cerebrovascular accident with right hemiparesis. 4. Cognitive deficits limiting therapy. PLAN: 1. Discussed with daughter need for placement, and she is researching several facilities in the [facility] area. 2. Discussed possible discharge plans with therapy later this week. Job ID: [id number]
--- NOTE | 2019-11-13 06:57 | PRG ---
DATE OF SERVICE: 11/12/2019 SUBJECTIVE: The patient is lying in bed, resting. No complaints. Responds to questions somewhat appropriately. OBJECTIVE: GENERAL: Shows PT/OT states they will be discharging the patient at the end of the week. LUNGS: Clear. CARDIAC: Shows regular rhythm. ABDOMEN: Soft, nontender. VITAL SIGNS: Show temperature 98.3, pulse 80, respirations 18, O2 sats 96% on room air, blood pressure 117/62. ASSESSMENT: 1. Persistent encephalopathy, most likely due to underlying dementia with superimposed recent metabolic encephalopathy with inability to maintain ADLs. 2. Chronic right hemiparesis secondary to old cerebrovascular accident. 3. Resolved pneumonia. 4. Persistent dysphagia, requiring PEG tube feeding. PLAN: 1. Daughter has arranged for transfer to [facility] next week and paperwork will be sent there. 2. Continue PT, OT rest of the week. 3. Continue to monitor for aspiration with PEG tube feeding. Job ID: [id number]
[2019-11-13] MEDS: Acetaminophen 325 MG TAB PER TUBE PRN (09:01)
[2019-11-13] MEDS: Amlodipine 5 MG TAB PER TUBE SCH (09:01)
[2019-11-13] MEDS: Ventolin HFA Inhaler 60 PUFF INHALER INH SCH ×3 (09:02→20:32)
[2019-11-13] MEDS: Atorvastatin Calcium 10 MG TAB PER TUBE SCH (09:02)
[2019-11-13] MEDS: Losartan 25 MG TAB PER TUBE SCH (20:32)
--- NOTE | 2019-11-14 07:54 | PRG ---
DATE OF SERVICE: 11/13/2019 SUBJECTIVE: The patient is lying in bed, resting, cooperating minimally with therapy today, but is in no distress. OBJECTIVE: Shows VITAL SIGNS: Blood pressure 137/81, temperature 97, pulse 89, respirations 18, O2 saturations 94% on room air. LUNGS: Clear. CARDIAC: Showed regular rhythm. ABDOMEN: Shows healed PEG tube, functioning well. SKIN/EXTREMITIES: Displayed no edema, clubbing, or cyanosis. NEUROLOGIC: Shows right hemiparesis. ASSESSMENT: 1. Stable dementia with minimal improvement, inability to cognitively cooperate with PT. 2. Stable cerebrovascular accident with right hemiparesis, slowly improving. 3. Dysphagia with minimal improvement, followed by Speech, requiring PEG tube feeding. PLAN: The patient to be arranged to transfer to [facility] next week as he has been accepted and will be discharged there. Daughter has understood she may need to arrange transportation. Job ID: [id number]
[2019-11-14] MEDS: Ventolin HFA Inhaler 60 PUFF INHALER INH SCH ×3 (09:05→20:18)
[2019-11-14] MEDS: Atorvastatin Calcium 10 MG TAB PER TUBE SCH (09:06)
[2019-11-14] MEDS: Amlodipine 5 MG TAB PER TUBE SCH (09:06)
[2019-11-14] MEDS: Losartan 25 MG TAB PER TUBE SCH (20:18)
[2019-11-15 00:02] VITALS: BMI 31.4
--- NOTE | 2019-11-15 08:30 | PRG ---
DATE OF SERVICE: 11/14/2019 SUBJECTIVE: The patient feels well, lying in the bed. No complaints. Daughter will visit him today hopefully. OBJECTIVE: VITAL SIGNS: Show temperature is 97.7, pulse 86, respirations 18, O2 sats 94% on room air, and blood pressure 132/74. LUNGS: Clear. CARDIAC: Shows regular rhythm. ABDOMEN: Soft and nontender. PEG tube functioning well. ASSESSMENT: 1. Stable cerebrovascular accident with right hemiparesis. 2. Persistent dementia, superimposed metabolic encephalopathy with minimal improvement, cognitively unable to maintain ADLs. 3. Dysphagia, minimal improvement on PEG tube. PLAN: Transfer to [facility] next week as they have accepted the patient. Daughter is arranging transportation. Job ID: [id number]
[2019-11-15] MEDS: Ventolin HFA Inhaler 60 PUFF INHALER INH SCH ×3 (10:07→20:06)
[2019-11-15] MEDS: Amlodipine 5 MG TAB PER TUBE SCH (10:07)
[2019-11-15] MEDS: Atorvastatin Calcium 10 MG TAB PER TUBE SCH (10:07)
[2019-11-15] MEDS: Losartan 25 MG TAB PER TUBE SCH (20:06)
[2019-11-16 05:44] LABS: #Basophils 0.1 thou/uL (0.0-0.2); #Eosinphils 0.5 thou/uL (0.0-0.7); #Lymphocytes 2.4 thou/uL (1.20-3.40); #Monocytes 0.7 thou/uL (0.11-0.59); #Neutrophils 6.1 thou/uL (1.40-6.50); %Basophils 0.9 % (0.0-1.0); %Eosinophils 4.9 % (0.0-10.0); %Lymphocytes 24.8 % (21.0-51.0); %Monocytes 7.3 % (0.0-10.0); %Neutrophils 62.1 % (42.0-75.0); Hemoglobin 12.2 g/dL (14.0-18.0); Mean Corpuscular HGB CONC 31.9 g/dL (32.0-36.0); Mean Corpuscular Hemoglobin 29.9 pg (27.0-31.0); Mean Corpuscular Volume 93.7 fL (78.0-98.0); Mean Platelet Volume 6.9 fL (7.4-10.4); Platelet Count 114 thou/uL (130-400); Platelet Morphology Comment Appears Decreased; RBC Distribution Width 13.6 % (11.5-14.5); RBC Morphology Normal; Red Blood Cell (RBC) Count 4.09 mill/uL (4.70-6.10); White Blood Cell (WBC) Count 9.8 thou/uL (4.8-10.8)
[2019-11-16 05:49] LABS: ALT (SGPT) 55 U/L (8-55); AST (SGOT) 34 U/L (5-34); Albumin 3.3 g/dL (3.4-4.8); Alkaline Phosphatase 137 U/L (40-110); Anion Gap 17 mmol/L (10-20); BUN (Urea Nitrogen) 20 mg/dL (8.4-25.7); Bilirubin, Total 0.4 mg/dL (0.2-1.2); Calc. Creatinine Clearance 62 mL/min (70-130); Carbon Dioxide 25 mmol/L (23-31); Chloride 101 mmol/L (98-107); Estimated GFR-MDRD 43; Globulin 4.3 g/dL (2.4-3.5); Glucose 109 mg/dL (83-110); Potassium 4.5 mmol/L (3.5-5.1); Protein, Total 7.6 g/dL (5.8-8.1); Sodium 138 mmol/L (136-145)
[2019-11-16] MEDS: Ventolin HFA Inhaler 60 PUFF INHALER INH SCH ×3 (08:21→20:56)
[2019-11-16] MEDS: Amlodipine 5 MG TAB PER TUBE SCH (08:22)
[2019-11-16] MEDS: Atorvastatin Calcium 10 MG TAB PER TUBE SCH (08:23)
--- NOTE | 2019-11-16 09:03 | PRG ---
DATE OF SERVICE: 11/15/2019 SUBJECTIVE: The patient lying in the bed, resting. No complaints. Discussed the situation with daughter who is ready to take him to [facility] on Saturday. OBJECTIVE: VITAL SIGNS: Shows temperature is 97.3, pulse 97 respirations 20, O2 sats 93% on room air, blood pressure 126/77. LUNGS: Clear. CARDIAC: Showed regular rhythm. ABDOMEN: Shows functioning PEG tube. ASSESSMENT: 1. Cerebrovascular accident with right hemiparesis, stable. 2. Recent increase in dementia secondary to metabolic encephalopathy from aspiration pneumonia with incomplete improvement and persistent inability to maintain activities of daily livings. 3. Dysphagia secondary to recent aspiration pneumonia. 4. Metabolic encephalopathy with still inability to tolerating tube feedings well. 5. Aspiration pneumonia, resolved. PLAN: Plan on transfer to [facility] on November 17 for continued therapy and intermediate care as patient unable to maintain ADLs at this time in assisted living. Job ID: [id number]
[2019-11-16] MEDS: Losartan 25 MG TAB PER TUBE SCH (20:56)
[2019-11-17] MEDS: Atorvastatin Calcium 10 MG TAB PER TUBE SCH (09:16)
[2019-11-17] MEDS: Ventolin HFA Inhaler 60 PUFF INHALER INH SCH ×3 (09:16→20:17)
[2019-11-17] MEDS: Amlodipine 5 MG TAB PER TUBE SCH (09:16)
[2019-11-17] MEDS: Losartan 25 MG TAB PER TUBE SCH (20:16)
--- NOTE | 2019-11-18 05:49 | PRG ---
DATE OF SERVICE: 11/16/2019 SUBJECTIVE: The patient feels same, awake, responding appropriately most of the time, in no distress. OBJECTIVE: VITAL SIGNS: Temperature is 98.7, pulse is 96, respirations are 20, O2 saturation is 94% on room air, blood pressure is 112/68. LUNGS: Clear. CARDIAC: Showed regular rhythm. ABDOMEN: Soft and nontender. NEUROLOGICAL: Shows chronic right hemiparesis. LABORATORY DATA: White count of 9800, hematocrit 38, hemoglobin 12. Sodium 138, potassium 4.5, chloride 101, bicarb 25, BUN 20, creatinine 1.59, albumin 3.3. Liver function studies otherwise normal. ASSESSMENT: 1. Stable cerebrovascular accident with chronic right hemiparesis. 2. Stable dysphagia requiring percutaneous endoscopic gastrostomy tube feeding with aspiration risk for any oral intake. 3. Deconditioning, improving slowly, but limited by cognitive deficits. 4. Aspiration pneumonia, resolved. 5. Hypertension, controlled to goal. PLAN: Continue supportive care and PT. Transfer to [facility] on November 17. Job ID: [id number]
--- NOTE | 2019-11-18 05:49 | PRG ---
DATE OF SERVICE: 11/17/2019 SUBJECTIVE: The patient feels well. No complaints, lying in bed, has visited with daughter and is preparing for transfer to [facility] tomorrow. OBJECTIVE: VITAL SIGNS: Shows temperature 98.1, pulse 83, respirations 18, O2 saturations 92% on room air, blood pressure is 129/59. LUNGS: Clear. CARDIAC: Showed regular rhythm. ABDOMEN: Shows PEG tube functioning well. NEUROLOGICAL: Shows diffuse weakness, right side worse than left. ASSESSMENT: 1. Stable cerebrovascular accident with right hemiparesis. 2. Stable cognitive deficits secondary to previous cerebrovascular accident and recent hospitalization. 3. Deconditioning slowly improved but limited by cognitive deficits. 4. Persistent dysphagia with aspiration risks requiring PEG tube feeding. PLAN: Continue supportive care. Discontinue from PT/OT. Transfer to [facility] tomorrow. Job ID: [id number]
[2019-11-18 08:06] VITALS: BP 134/65; TEMP 96.2
[2019-11-18] MEDS: Amlodipine 5 MG TAB PER TUBE SCH (08:39)
[2019-11-18] MEDS: Atorvastatin Calcium 10 MG TAB PER TUBE SCH (08:39)
[2019-11-18] MEDS: Ventolin HFA Inhaler 60 PUFF INHALER INH SCH (08:39)
--- NOTE | 2019-11-18 12:20 | DIS ---
DATE OF ADMISSION: 10/20/2019 DATE OF DISCHARGE: 11/18/2019 FINAL DIAGNOSES: 1. Aspiration pneumonia, respiratory failure, resolved. 2. Severe deconditioning, minimally improved. 3. History of previous cerebrovascular accident with right hemiparesis, stable. 4. Cognitive deficits apparently present previously, but exacerbated with metabolic encephalopathy from hospitalization with pneumonia, which has not improved and has limited PT and OT. 5. Dysphagia after aspiration pneumonia, most likely combination of previous cerebrovascular accident and deconditioning, which has not improved with therapy and is requiring PEG tube placement. 6. Hypertension, controlled to goal. 7. Chronic kidney disease, stage 3. HOSPITAL COURSE: The patient is a 74-year-old white male who was living at [facility] and developed aspiration pneumonia. He was exposed to COVID-19, but this was not present. He responded to IV antibiotics and respiratory therapy, but remained severely weakened. He was not known to myself, but according to family was able to care for himself, ambulating with wheelchair at [place], however. During this admission, he has been continued found to be unsafe to eat by Speech and had a PEG tube placed prior to admission and has continued on this. He also has been working with PT/OT and has become stronger, but is somewhat limited by his cognitive deficits which apparently have worsened. He has been felt to be unable to maintain ADLs and still unsafe for transfer and therefore is being transferred to [facility] to continue attempts at PT, OT, but possibly also for snf care. His hypertension has been well controlled on amlodipine and losartan. He has not had any problems with respiratory distress during this hospitalization. DISCHARGE PHYSICAL EXAMINATION: VITAL SIGNS: His blood pressures remained stable and on discharge his blood pressure is 140/80, temperature is 98, pulse 89, respirations 20, and O2 sats 94% on room air. LUNGS: Clear. CARDIAC: Shows regular rhythm. ABDOMEN: Soft and nontender with functioning PEG tube. NEUROLOGICAL: Shows diffuse weakness, right worse than left. LABORATORY DATA: Most recent laboratories showed no significant anemia, stable chronic kidney disease stage 3 with a GFR of 43, creatinine 1.59, mild malnutrition with albumin of 3.3. Job ID: [id number]
== END 2019-11-18 11:38 | DRG 177 ==
LOC: NAV ACUTE 12:06
PROVIDERS: ADMIT Internal Medicine; ATTEND Internal Medicine
PROC: 0DH63UZ Insertion of Feeding Device into Stomach, Percutaneous Approach (ICD-10-PCS; principal; 2019-10-26)
DX: J69.0 Pneumonitis due to inhalation of food and vomit (principal); G93.41 Metabolic encephalopathy; J96.90 Respiratory failure, unspecified, unspecified whether with hypoxia or hypercapnia; I69.351 Hemiplegia and hemiparesis following cerebral infarction affecting right dominant side; R13.10 Dysphagia, unspecified; R45.1 Restlessness and agitation; E78.5 Hyperlipidemia, unspecified; I12.9 Hypertensive chronic kidney disease with stage 1 through stage 4 chronic kidney disease, or unspecified chronic kidney disease; N18.3 Chronic kidney disease, stage 3 (moderate); R53.81 Other malaise; K21.9 Gastro-esophageal reflux disease without esophagitis; I69.320 Aphasia following cerebral infarction; Z87.01 Personal history of pneumonia (recurrent); Z99.3 Dependence on wheelchair
CPT/HCPCS: 36415; 80048; 80053; 85025; 94664